=== PATIENT | female | born 1955 | race Caucasian/White ===

== ENCOUNTER → 2020-04-15 16:34 | Outpatient (BNVA) | payer MEDICARE, SELFPAY | PROVIDERS: Family Provider Family Medicine; Visit Provider Family Medicine | DX: M25.569 Pain in unspecified knee (principal) | CPT/HCPCS: 84550; 85651 ==

== ENCOUNTER → 2020-04-19 10:39 | Outpatient (BNVA) | payer OTHER, SELFPAY | PROVIDERS: Family Provider Family Medicine; Visit Provider Nurse Practitioner Family | DX: Z11.59 Encounter for screening for other viral diseases (principal) | CPT/HCPCS: 87635 ==

== ENCOUNTER → 2020-07-06 16:26 | Outpatient (BNVA) | payer MEDICARE, SELFPAY | PROVIDERS: Family Provider Family Medicine; Visit Provider Nurse Practitioner Family | DX: H10.9 Unspecified conjunctivitis (principal); R50.9 Fever, unspecified | CPT/HCPCS: 87400 ==

== ENCOUNTER → 2020-10-26 13:41 | Outpatient (BNVA) | payer MEDICARE, SELFPAY | PROVIDERS: Family Provider Family Medicine; Visit Provider Nurse Practitioner Family | DX: M25.461 Effusion, right knee (principal); M25.561 Pain in right knee; L53.9 Erythematous condition, unspecified; M79.641 Pain in right hand; M79.89 Other specified soft tissue disorders; M25.50 Pain in unspecified joint; R53.83 Other fatigue; M19.041 Primary osteoarthritis, right hand; M17.11 Unilateral primary osteoarthritis, right knee | CPT/HCPCS: 73130; 73562; 80053; 84443; 84550; 85025; 85651; 86140; 86431 ==

== ENCOUNTER → 2021-03-02 09:31 | Outpatient (BNVA) | payer MEDICARE, SELFPAY | PROVIDERS: Family Provider Family Medicine; PCP Nurse Practitioner Family; Visit Provider Nurse Practitioner Family | DX: M25.552 Pain in left hip (principal); M54.9 Dorsalgia, unspecified; M25.50 Pain in unspecified joint | CPT/HCPCS: 73502; 81000 ==

== ENCOUNTER → 2021-06-20 14:31 | Outpatient (BNVA) | payer MEDICARE, SELFPAY | PROVIDERS: Family Provider Family Medicine; PCP Nurse Practitioner Family; Visit Provider Nurse Practitioner Family | DX: Z20.822 Contact with and (suspected) exposure to COVID-19 (principal); R50.9 Fever, unspecified; R05.9 Cough, unspecified | CPT/HCPCS: 87400; 87635 ==

== ENCOUNTER → 2021-12-14 11:04 | Outpatient (BNVA) | payer MEDICARE, SELFPAY | PROVIDERS: Family Provider Family Medicine; PCP Nurse Practitioner Family; Visit Provider Nurse Practitioner Family | DX: R50.9 Fever, unspecified (principal); M25.50 Pain in unspecified joint; M17.11 Unilateral primary osteoarthritis, right knee; Z20.822 Contact with and (suspected) exposure to COVID-19 | CPT/HCPCS: 87635 ==

== ENCOUNTER 2022-03-23 21:59 | Observation (INO) | payer MEDICARE, SELFPAY ==
--- NOTE | 2022-03-23 22:01 | XRR_ITS ---
PROCEDURE INFORMATION: Exam: XR Chest Exam date and time: 03/23/2022 10:23 PM Age: 67 years old Clinical indication: Radiating; Patient HX: Chest pain with radiation to left up ext. ; Additional info: Cp TECHNIQUE: Imaging protocol: Radiologic exam of the chest. Views: 1 view. COMPARISON: No relevant prior studies available. FINDINGS: Lungs: See Heart/Mediastinum finding. Pleural spaces: Unremarkable. No pleural effusion. No pneumothorax. Heart/Mediastinum: Cardiomegaly, negative for infiltrate. Bones/joints: Unremarkable. XR/XR chest 1V portable [id number] IMPRESSION: Cardiomegaly, negative for infiltrate.
--- NOTE | 2022-03-23 22:02 | ECG_ITS ---
[facility] Test Date: 2022-03-23 Pat Name: Agustin Wilder Department: Room: Gender: Female Cardiac Care Unit Nurse: : 1955 Requested By: Mitchell Eng Order Number: [id number] Charli MD: Darren Cortez M.D. Measurements Intervals [place] Rate: 80 P: 46 AR: 172 QRS: 36 QRSD: 86 T: 64 QT: 381 QTc: 440 Interpretive Statements SINUS RHYTHM WITH OCCASIONAL VENTRICULAR PREMATURE COMPLEXES POSSIBLE RIGHT VENTRICULAR CONDUCTION DELAY [RSR (QR) IN V1/V2] No previous ECG available for comparison Electronically Signed On 03-24-2022 14:48:30 CDT by Darren Cortez M.D. [email or web address] valley [facility].Critique^It/store/OM/[id number]
[2022-03-23 22:08] VITALS: BP 154/83; PULSE 81; RESP 22; TEMP 36.6; O2SAT 97; BMI 18.3
--- NOTE | 2022-03-23 22:36 | ED_ITS ---
HPI - Chest Pain General: Chief Complaint: Chest Pain Stated Complaint: cp Time Seen by Provider: 03/23/22 22:18 Source: patient Mode of arrival: ambulatory Limitations: no limitations History of Present Illness: 67-year-old female states that she went to bed tonight she had sudden onset of crushing chest pain in the center of her chest that radiated to her left arm and neck. States pain is currently a 6 out of 10 she denies any worsening improving factors. She is a longtime smoker. Denies any cough or fever. Associated symptoms: Deny abdominal pain, dyspnea, fever(s), nausea or vomiting Review of Systems Const: Denies: fever(s), chills, body aches or change in appetite Eyes: Denies: blurry vision or eye discomfort ENMT: Denies: throat pain or dental pain Card: Reports: chest pain Resp: Denies: dyspnea GI: Denies: abdominal pain, nausea, vomiting or diarrhea : Denies: dysuria Musc: Denies: neck pain or back pain Skin/Breast: Denies: rash Neuro: Denies: headache(s) Psych: Denies: depression Andre/Lymph: Denies: easy bruising All/Imm: Denies: urticaria PFSH ED PFSH: Medical History Smoker Social History Smoking and tobacco status: current every day smoker Second hand smoke exposure: No Smoking risk assessment/counseling performed?: No Alcohol intake: never Desire information about alcohol rehabilitation?: No Counseling given: No Desire information about substance/drug rehabilitation?: No Counseling given: No Adopted: No Caregiver/support person: No Lives independently: Yes Household members: none Housing: House Marital status: / Number of children: 2 service: No Current occupational status: employed Physical Exam Const: COMMON NORMALS: no acute distress, patient oriented x3 and healthy appearing HENMT: COMMON NORMALS: normocephalic and atraumatic HEAD & SCALP: normocephalic and atraumatic Eye: COMMON NORMALS: Equal, round and reactive pupils present and EOMs intact bilaterally PUPIL: Yes Equal, round and reactive pupils present Neck/C-Spine: COMMON NORMALS: full ROM and supple Chest: COMMONS NORMALS: normal inspection of the chest and normal palpation of entire chest wall Resp: COMMON NORMALS: normal respiratory effort, No retractions, No use of accessory muscles and clear to auscultation bilaterally AUSCULTATION: clear to auscultation bilaterally Cardio: COMMON NORMALS: regular rate, regular rhythm and No murmurs present (Cardio) RATE: regular rate RHYTHM: regular rhythm GI: COMMON NORMALS: Normal to inspection, nondistended, normoactive bowel sounds present, Soft to palpation, non-tender and no masses PALPATION: Yes Soft to palpation Extremity: COMMON NORMALS: normal to inspection and full ROM Neuro: COMMON NORMALS: patient oriented x3, moves all extremities and no focal motor deficits Psych: COMMON NORMALS: mental status grossly normal, Normal thought process present and cooperative THOUGHT PROCESS: Normal thought process present Skin: COMMON NORMALS: no rashes or lesions noted and no wounds GENERAL SKIN EXAM: no rashes or lesions noted Course Vital Signs: Vital signs: Vital Signs Temperature 97.8 F 03/23/22 22:08 Pulse Rate 79 03/24/22 00:13 Respiratory Rate 18 03/24/22 01:10 Blood Pressure 145/93 03/24/22 00:13 Pulse Oximetry 94 03/24/22 00:13 Oxygen Delivery Me thod 03/23/22 22:08 MDM - Chest Pain Medical Decision Making Patient presents here with chest pain her pain has resolved here her troponin was mildly elevated and her 2-hour troponin but not a delta of 10 she is a longtime smoker has multiple risk factors will admit at this time for ACS rule out. Lab Data : 03/23/22 22:30 03/23/22 22:30 Radiology Impressions Chest X-Ray 03/23/22 22:01 IMPRESSION: Cardiomegaly, negative for infiltrate. Laboratory Results WBC 9.3 10^3/uL (4.0-10.0) 03/23/22 22:30 RBC 4.29 10^6/uL (4.1-5.3) 03/23/22 22:30 Hgb 14.0 g/dL (11.5-15.3) 03/23/22 22:30 Hct 40.8 % (37.0-47.0) 03/23/22 22:30 MCV 95.1 fl (81-99) 03/23/22 22:30 MCH 32.6 pg (28.0-34.0) 03/23/22 22:30 MCHC 34.3 g/dL (30.0-36.0) 03/23/22: RDW 13.2 % (12.1-15.1) 03/23/22 22: Plt Count 233 10^3/cmm (130-400) 03/23/22 22:30 MPV 11.3 fL (7.4-10.4) H 03/23/22 22: Neut % (Auto) 61.9 % 03/23/22: Lymph % (Auto) 27.7 % 03/23/22: [place] % (Auto) 7.4 % 03/23/22: Eos % (Auto) 2.3 % 03/23/22: Baso % (Auto) 0.5 % 03/23/22: Neut # (Auto) 5.75 10^3/uL (1.8-7.7) 03/23/22: Lymph # (Auto) 2.6 10^3/uL (0.8-4.8) 03/23/22 22:30 [place] # (Auto) 0.7 10^3/uL (0.2-0.9) 03/23/22 22:30 Eos # (Auto) 0.2 10^3/uL (0.0-0.8) 03/23/22:30 Baso # (Auto) 0.1 10^3/uL (0.0-0.1) 03/23/22: Nucleated RBC % (auto) 0 % 03/23/22: Nucleated RBCs # 0.0 /100WBC 03/23/22 22:30 Sodium 141 mmol/L (136-145) 03/23/22 22:30 Potassium 3.4 mmol/L (3.5-5.1) L 03/23/22: Chloride 106 mmol/L (98-107) 03/23/22 22: Carbon Dioxide 23 mmol/L (22-29) 03/23/22 22:30 Anion Gap 15.4 (5-19) 03/23/22 22:30 BUN 18 mg/dL (8-23) 03/23/22 22:30 Creatinine 0.6 mg/dL (0.5-0.9) 03/23/22 22:30 GFR Calculation 99.7 mL/min (90-130) 03/23/22 22:30 Glucose 134 mg/dL (65-115) H 03/23/22 22:30 Calculated Osmolality 296 mOsm/kg (285-295) H 03/23/22 22:30 Calcium 9.3 mg/dL (8.5-10.5) 03/23/22 22:30 Total Bilirubin 0.2 mg/dL (0.15-1.2) 03/23/22 22:30 AST 14 U/L (0-32) 03/23/22 22:30 ALT 9 U/L (0-33) 03/23/22 22:30 Alkaline Phosphatase 124 U/L (35-105) H 03/23/22 22:30 Troponin T Baseline 6 ng/L (0-10) 03/23/22 22:30 Troponin T 120 Minute 12.53 ng/L (0-10) H 03/24/22 00:00 Delta Troponin T 6.53 ABS# (0-10) 03/24/22 00:00 Total Protein 7.0 g/dL (6.6-8.7) 03/23/22 22:30 Albumin 4.1 g/dL (3.5-5.2) 03/23/22 22:30 Globulin 2.9 g/dL (1.3-4.6) 03/23/22 22:30 Lipase 37 U/L (13-60) 03/23/22 22:30 EKG Data EKG 1: I personally reviewed and interpreted this EKG as follows: EKG interpretation date: 03/23/22 EKG interpretation time: 22:15 Interpretation: nsr hr [address] or t wave abnormalities qrs 86 qtc 417 EKG 2: I personally reviewed and interpreted this EKG as follows: EKG interpretation date: 03/24/22 EKG interpretation time: 00:16 Interpretation: nsr hr [address] or t wave abnormalities qrs 98 qtc 434 Discharge Plan Discharge Patient Disposition: Admitted As Inpatient Clinical Impression: Chest pain Condition: Stable Coding Level of Care Code ED Rag Cutting Machine Feeder for Chg Fwd Exam Comprehensive
[2022-03-23 22:40] LABS: Basophils # 0.1 10^3/uL (0.0-0.1); Basophils % 0.5 %; Eosinophils # 0.2 10^3/uL (0.0-0.8); Eosinophils % 2.3 %; Hematocrit 40.8 % (37.0-47.0); Lymphocytes # 2.6 10^3/uL (0.8-4.8); Lymphocytes % 27.7 %; Mean Corpuscular HGB Conc 34.3 g/dL (30.0-36.0); Mean Corpuscular Hemoglobin 32.6 pg (28.0-34.0); Mean Corpuscular Volume 95.1 fl (81-99); Mean Platelet Volume 11.3 fL (7.4-10.4); Monocytes # 0.7 10^3/uL (0.2-0.9); Monocytes % 7.4 %; Neutrophils # 5.75 10^3/uL (1.8-7.7); Neutrophils % 61.9 %; Nucleated Red Blood Cells % 0 %; Platelet Count 233 10^3/cmm (130-400); Red Blood Count 4.29 10^6/uL (4.1-5.3); Red Cell Distribution Width 13.2 % (12.1-15.1); White Blood Count 9.3 10^3/uL (4.0-10.0)
[2022-03-23 22:59] LABS: Alanine Aminotransferase 9 U/L (0-33); Albumin Level 4.1 g/dL (3.5-5.2); Alkaline Phosphatase 124 U/L (35-105); Anion Gap 15.4 (5-19); Aspartate Amino Transferase 14 U/L (0-32); Blood Urea Nitrogen 18 mg/dL (8-23); Calcium 9.3 mg/dL (8.5-10.5); Carbon Dioxide 23 mmol/L (22-29); Chloride 106 mmol/L (98-107); Globulin 2.9 g/dL (1.3-4.6); Glomerular Filtration Rate 99.7 mL/min (90-130); Glucose 134 mg/dL (65-115); Lipase 37 U/L (13-60); Osmolality Calculated 296 mOsm/kg (285-295); Potassium 3.4 mmol/L (3.5-5.1); Sodium 141 mmol/L (136-145); Total Bilirubin 0.2 mg/dL (0.15-1.2); Troponin(5th) Baseline 6 ng/L (0-10)
[2022-03-23 23:50] VITALS: BP 130/87; PULSE 75; RESP 20; O2SAT 95
[2022-03-24] VITALS (9 sets, daily range): BP systolic 124–145; BP diastolic 70–93; PULSE 69–97; RESP 16–23; TEMP 36.6–36.7; O2SAT 92–98
--- NOTE | 2022-03-24 | ECG_ITS ---
[facility] Test Date: 2022-03-24 Pat Name: Agustin Wilder Department: Room: 250 Gender: Female Client Coordinator: : 1955 Requested By: Carol Webb Order Number: [id number] Charli MD: Darren Cortez M.D. Interpretive Statements NAME OF STUDY: LEXISCAN SESTAMIBI STRESS TEST INDICATION: [Chest Pain, ] Procedure: At the baseline, the blood pressure was 139/88 mmHg with a heart rate of 62 bpm. The electrocardiogram showed normal sinus rhythm, normal axis with normal ST and T's. The Lexiscan was infused over a period of 20 seconds. A total of 0.4 mg of Lexiscan was infused. The stress phase was continued for a total of 5 minutes. Heart rate was at the end of stress phase was 90 bpm and a blood pressure of 125/87 mmHg. The EKG at the peak infusion revealed normal sinus rhythm with no significant ST-T wave changes. Sestamibi was injected 20 seconds after the Lexiscan infusion. Blood pressure at the end of recovery phase was 141/79 mmHg with a heart rate of 87 bpm. Conclusion: 1. Normal EKG response to Lexiscan infusion 2. No Lexiscan induced chest pain or cardiac arrhythmia. 3. Normal blood pressure and heart rate response. 4. Sestamibi/sestamibi perfusion scan pending; see separate report. Electronically Signed On 03-25-2022 21:23:42 CDT by Darren Cortez M.D. [id number]
--- NOTE | 2022-03-24 00:16 | ECG_ITS ---
[facility] Test Date: 2022-03-24 Pat Name: Agustin Wilder Department: Room: Gender: Female Grain Miller Helper: : 1955 Requested By: Mitchell Eng Order Number: [id number] Charli MD: Darren Cortez M.D. Measurements Intervals [place] Rate: 72 P: 54 [place]: 152 QRS: 17 QRSD: 98 T: 56 QT: 410 QTc: 451 Interpretive Statements SINUS RHYTHM WITH OCCASIONAL VENTRICULAR PREMATURE COMPLEXES POSSIBLE RIGHT VENTRICULAR CONDUCTION DELAY [RSR (QR) IN V1/V2] POSSIBLE INFERIOR MYOCARDIAL INFARCTION , OF INDETERMINATE AGE [30 ms Q WAVE IN II/aVF] Compared to ECG 03/23/2022 22:15:55 Myocardial infarct finding now present Electronically Signed On 03-24-2022 14:50:22 CDT by Darren Cortez M.D. [id number]
[2022-03-24 00:23] LABS: Troponin 5 2HR 12.53 ng/L (0-10)
[2022-03-24 00:24] LABS: Troponin 5 2HR Delta 6.53 ABS# (0-10)
[2022-03-24] MEDS: ondansetron 2 mg/ML SDV 2 mL 4 MG IVP (01:07)
[2022-03-24] MEDS: HYDROmorphone 1 mg/mL INJ 1 mL 0.5 MG IVP (01:10)
--- NOTE | 2022-03-24 04:13 | ECG_ITS ---
[facility] Test Date: 2022-03-24 Pat Name: Agustin Wilder Department: Room: 250 Gender: Female Planned Giving Officer: : 1955 Requested By: Mitchell Eng Order Number: [id number] Charli MD: Darren Cortez M.D. Measurements Intervals [place] Rate: 67 P: 52 NC: 172 QRS: 40 QRSD: 89 T: 66 QT: 421 QTc: 446 Interpretive Statements SINUS RHYTHM Compared to ECG 03/24/2022 00:16:26 Ventricular premature complex(es) no longer present Myocardial infarct finding no longer present Electronically Signed On 03-24-2022 14:49:40 CDT by Darren Cortez M.D. [email or web address] on [email or web address] [email or web address].[email or web address]/store/OM/[id number]
--- NOTE | 2022-03-24 04:15 | NMCV_ITS ---
NM sarah perf SPECT r/s* [id number] Agustin Wilder Age: 67 Gender: F : 1955 Exam Date: 03/24/2022 06:57 Ordering Phys: Carol Webb MD Technologist: JIL Gary Exam Location: [facility] Indications: CHEST PAIN STRESS TEST Please [facility] IMAGE PROTOCOL Rest/Stress 1 Lexiscan Day Radiopharmaceutical Dose (mCi) Administration Site Administered by Rest: Tc-99m 10.6 IV JIL Poole Sestamibi Stress:Tc-99m 32.5 IV JIL Poole Sestamibi Rest: 24-Mar-2022 60 Discovery 630 Stress: 24-Mar-2022 30 Discovery 630 0.4mg Lexiscan. Supine position only as patient was unable to lay prone. SPECT RESULTS Technical Quality: Good Raw Data Analysis: Normal Image Corrections: No attenuation or motion correction applied Summed Stress Score: 1 Summed Rest Score: 0 Summed Difference Score: 1 PERFUSION FINDINGS There is a small in size reversible perfusion defect noted in inferolateral wall. This is consistent with small sized area of ischemia in left circumflex artery territory. FUNCTIONAL RESULTS (calculated via Gated SPECT) Stress Image LV EF (%): 76 Stress EDV (mL):85 TID: 1.04 Stress ESV (mL):20 FUNCTIONAL FINDINGS: There is normal left ventricular systolic function. IMPRESSIONS 1. Abnormal myocardial perfusion imaging with small sized area of ischemia noted in left circumflex artery territory. 2. LV systolic function is normal. Darren Cortez MD (Electronically Signed) Final Date: 24 March 2022 12:19 S
--- NOTE | 2022-03-24 04:17 | PM.HP ---
Providers/Chief Complaint Admitting Physician: Carol Webb MD Primary Care Provider: TAMIKO De Los Santos Chief Complaint: cp History of Present Illness Agustin Wilder is a 67 year old female who is a longstanding smoker, no other medical comorbidities came with chest pain. Started at 8:30 PM yesterday. Patient was walking when the pain started. She laid down to rest and the pain got better. While on her way over she started to have pain again in the car. The first time the pain radiated into her jaw. In the car pain radiated into her left arm. She has never had similar pain in the past. No past history of known cardiac issues. No hypertension diabetes. There are no acute ST-T wave changes on EKG. Troponins not significantly elevated at baseline and 2 hours. Review of Systems General: Reports: 10 or more systems reviewed and unremarkable except in HPI and below Const: Denies: fever(s), chills or body aches Eyes: Denies: change in vision, blurry vision or photophobia ENMT: Reports: hoarseness; Denies: throat pain, enlarged tonsils, odynophagia or nasal congestion Card: Denies: chest pain, palpitations, irregular heart rhythm, edema, swelling of feet/ankles, lightheadedness, pre-syncope, dyspnea on exertion or orthopnea Resp: Denies: dyspnea, productive cough, non-productive cough, wheezing, stridor, pain on inspiration, change in phlegm color, hemoptysis or chest congestion GI: Denies: abdominal pain, nausea, vomiting, hematemesis, coffee ground emesis, dysphagia, heartburn, diarrhea, constipation, GI cramping, change in stool character, hematochezia or melena : Denies: flank pain, difficulty voiding, dysuria, urinary frequency, urinary urgency, urinary hesitancy or hematuria Musc: Denies: neck pain, back pain, extremity pain, joint swelling, joint warmth or deformity Neuro: Denies: headache(s), numbness in extremities, weakness in extremities, sensory changes, difficulty walking, frequent falls, dizziness, vertigo, behavioral changes, Slurred speech present or seizure-like activity Psych: Denies: anxiety, depression, suicidal ideation or homicidal ideation Endo: Denies: polyuria, polydipsia, tired all the time, cold intolerance or hot flashes Andre/Lymph: Denies: easy bruising or easy bleeding Medications/Allergies Home Medications Medication Instructions Recorded Confirmed Last Taken Type ascorbate calcium (vitamin C) 500 500 mg PO DAILY 04/15/20 12/14/21 Unknown History mg tablet calcium carbonate 500 mg calcium 500 mg PO DAILY 04/15/20 12/14/21 Unknown History (1,250 mg) tablet vitamin E 200 unit capsule 200 unit PO DAILY 04/15/20 12/14/21 Unknown History celecoxib 200 mg capsule 200 mg PO BID 30 days #60 caps 12/14/21 12/14/21 Unknown Rx Allergies Allergy/AdvReac Type Severity Reaction Status Date / Time codeine Allergy stomach Verified 12/14/21 11:03 upset PFSH Acute PFSH: Medical History Smoker Social History Smoking and tobacco status: current every day smoker Second hand smoke exposure: No Smoking risk assessment/counseling performed?: No Alcohol intake: never Desire information about alcohol rehabilitation?: No Counseling given: No Desire information about substance/drug rehabilitation?: No Counseling given: No Adopted: No Caregiver/support person: No Lives independently: Yes Household members: none Housing: House Marital status: / Number of children: 2 service: No Current occupational status: employed Vitals/I&O/Wt Last Vital Signs Temp 97.9 F 03/24/22 03:04 Pulse 69 03/24/22 03:04 Resp 17 03/24/22 03:04 BP 124/77 03/24/22 03:04 Pulse Ox 92 03/24/22 03:04 O2 Del Method 03/24/22 03:04 Weight last 48 hrs Weight 51.71 kg Physical Exam Narrative: General: No acute distress, AO x3 HEENT: PERRLA, pupils bilaterally equal and reactive, pallors not present Chest: Normal vesicular breath sounds, no added sounds, equal good air entry bilaterally CVS: S1-S2 regular, no murmurs, no tachycardia, no gallops, no rubs Abdomen: Soft, nontender, no organomegaly, bowel sounds present Neuro: No focal deficits, no facial deformity, AO x3, power 5/5 in all limbs Data : 03/23/22 22:30 03/23/22 22:30 Other Labs: Radiology Impressions Chest X-Ray 03/23/22 22: IMPRESSION: Cardiomegaly, negative for infiltrate. Laboratory Results WBC 9.3 10^3/uL (4.0-10.0) 03/23/22: RBC 4.29 10^6/uL (4.1-5.3) 03/23/22: Hgb 14.0 g/dL (11.5-15.3) 03/23/22: Hct 40.8 % (37.0-47.0) 03/23/22: MCV 95.1 fl (81-99) 03/23/22: MCH 32.6 pg (28.0-34.0) 03/23/22: MCHC 34.3 g/dL (30.0-36.0) 03/23/22: RDW 13.2 % (12.1-15.1) 03/23/22: Plt Count 233 10^3/cmm (130-400) 03/23/22: MPV 11.3 fL (7.4-10.4) H 03/23/22: Neut % (Auto) 61.9 % 03/23/22: Lymph % (Auto) 27.7 % 03/23/22: [place] % (Auto) 7.4 % 03/23/22: Eos % (Auto) 2.3 % 03/23/22: Baso % (Auto) 0.5 % 03/23/22: Neut # (Auto) 5.75 10^3/uL (1.8-7.7) 03/23/22: Lymph # (Auto) 2.6 10^3/uL (0.8-4.8) 03/23/22: [place] # (Auto) 0.7 10^3/uL (0.2-0.9) 03/23/22: Eos # (Auto) 0.2 10^3/uL (0.0-0.8) 03/23/22: Baso # (Auto) 0.1 10^3/uL (0.0-0.1) 03/23/22: Nucleated RBC % (auto) 0 % 03/23/22 22:30 Nucleated RBCs # 0.0 /100WBC 03/23/22 22:30 Sodium 141 mmol/L (136-145) 03/23/22 22:30 Potassium 3.4 mmol/L (3.5-5.1) L 03/23/22 22:30 Chloride 106 mmol/L (98-107) 03/23/22 22:30 Carbon Dioxide 23 mmol/L (22-29) 03/23/22 22:30 Anion Gap 15.4 (5-19) 03/23/22 22:30 BUN 18 mg/dL (8-23) 03/23/22:30 Creatinine 0.6 mg/dL (0.5-0.9) 03/23/22: GFR Calculation 99.7 mL/min (90-130) 03/23/22 22:30 Glucose 134 mg/dL (65-115) H 03/23/22 22:30 Calculated Osmolality 296 mOsm/kg (285-295) H 03/23/22:30 Calcium 9.3 mg/dL (8.5-10.5) 03/23/22 22:30 Total Bilirubin 0.2 mg/dL (0.15-1.2) 03/23/22 22:30 AST 14 U/L (0-32) 03/23/22:30 ALT 9 U/L (0-33) 03/23/22 22:30 Alkaline Phosphatase 124 U/L (35-105) H 03/23/22 22:30 Troponin T Baseline 6 ng/L (0-10) 03/23/22 22:30 Troponin T 120 Minute 12.53 ng/L (0-10) H 03/24/22 00:00 Delta Troponin T 6.53 ABS# (0-10) 03/24/22 00:00 Troponin T Hi Sens 6Hr 6.00 ng/L (0-10) 03/24/22 05:03 Total Protein 7.0 g/dL (6.6-8.7) 03/23/22 22:30 Albumin 4.1 g/dL (3.5-5.2) 03/23/22 22:30 Globulin 2.9 g/dL (1.3-4.6) 03/23/22 22:30 Lipase 37 U/L (13-60) 03/23/22 22:30 A&P Assessment and plan (1) Chest pain: Chest pain radiating to neck and left arm. Made worse with exertion. Patient is a chronic smoker. Though lacking other comorbidities concerning for potential anginal type chest pain. Will evaluate with a stress test this morning. Aspirin 81 mg p.o. daily started in the interim. Low suspicion for PE, no dyspnea or hypoxia. Attestations Medical Necessity Statement*: anticipate less than 2 midnight admission for evaluation of chest pain Coding Level of Care Code Acute Group Worker for [facility] Arely Diagnoses Chest pain R07.9
[2022-03-24] MEDS: potassium chloride ER 20 mEq Tablet 40 MEQ PO (04:55)
[2022-03-24 05:47] LABS: Troponin 5 6HR Delta 0 ng/L (0-12)
--- NOTE | 2022-03-24 07:18 | PC.NURSE ---
Pt gone for stress test when bedside report was done.
[2022-03-24] MEDS: regadenoson 0.4 Mg/5 ml Syringe IVP (07:33)
--- NOTE | 2022-03-24 07:39 | USCV_ITS ---
Agustin Wilder Age: 67 Gender: F : 1955 Exam Date: 03/24/2022 08:40 Ordering Phys: Claire Sena MD Technologist: YOLANDE [place] [facility] [place]: UA BP: 143 / 85 HR: 63 Rhythm: Sinus Technical Quality: Adequate MEASUREMENTS (Male / Female) Normal Values 2D ECHO LVOT Diameter 2.0 cm LV Ejection Fraction MOD 2C 67.1 % LV Ejection Fraction 2C AL 68.6 % LA Diameter 2.8 cm LA Width 3.5 cm LA Height 4.0 cm RA Width 4.1 cm RA Height 4.4 cm Aorta at Sinotubular Diameter 1.9 cm IVC Diameter 1.7 cm M-MODE Aortic Annulus Diameter 3.0 cm LA Ao Ratio MM 0.8 MV E Point Septal Separation 0.3 cm DOPPLER AV Peak Velocity 136.0 cm/s LVOT Peak Velocity 94.0 cm/s AV Area Cont Eq vti 2.3 cm squared AV Area Cont Eq pk 2.2 cm squared MV Peak Velocity 94.0 cm/s MV Area PHT 3.9 cm squared Mitral E to A Ratio 1.7 MV E' Velocity 50.0 cm/s Mitral E to MV E' Ratio 8.1 Mitral E to LV E' Lateral Ratio 8.0 Mitral E to LV E' Septal Ratio 8.3 TR Peak Velocity 252.5 cm/s TR Peak Gradient 25.5 mmHg TR Mean Velocity 194.3 cm/s TR Mean Gradient 16.1 mmHg TR Velocity Time Integral 79.0 cm TV Peak E Velocity 52.0 cm/s Right Atrial Pressure 3.0 mmHg Pulmonary Artery Systolic Pressu 28.5 mmHg PV Peak Velocity 85.0 cm/s RV Acceleration Time 0.2 s RV Ejection Time 0.3 s RV AcT/ET 0.4 FINDINGS Left Ventricle Normal left ventricular size and systolic function, EF 66 %. Mild left ventricular hypertrophy. No regional wall motion abnormalities. Right Ventricle Normal right ventricular size and systolic function. Right Atrium Upper limit of normal size Left Atrium Mildly increased left atrial size. Mitral Valve Mild-moderate mitral valve regurgitation. Aortic Valve Mild aortic valve regurgitation. Thickened aortic valve. Tricuspid Valve Mild to moderate tricuspid valve regurgitation. Pulmonic Valve No gross abnormalities noted Pericardium No pericardial effusion. Aorta Normal aortic annulus size. IVC Normal inferior vena cava. CONCLUSIONS Normal left ventricular size and systolic function, EF 66 %. Mild left ventricular hypertrophy. No regional wall motion abnormalities. Mildly increased left atrial size. Mild to moderate mitral and tricuspid regurgitation Mild aortic valve regurgitation. Thickened aortic valve. Estimated pulmonary artery peak systolic pressure 29 mmHg There is no pericardial effusion. There are no intracardiac masses. No similar previous studies are available for comparison Dr Daxa Pierre MD [facility] (Electronically Signed) Final Date: 24 March 2022 09:48 S
[2022-03-24] MEDS: pantoprazole DR 40 mg Tablet PO (09:29)
[2022-03-24] MEDS: aspirin 81 mg EC Tablet PO (09:29)
--- NOTE | 2022-03-24 10:14 | P.DS_ITS ---
Discharge Providers Date of Admission: 03/24/22 01:13 Date of Discharge: March 24, 2022 Attending Provider at Admission: Carol Webb MD Attending Provider at Discharge: Claire Sena MD Primary Care Provider: TAMIKO De Los Santos Diagnoses at Discharge Discharge Diagnosis (1) Chest pain: Status: Acute Reason for Visit Reason for Visit: cp Hospital Course Hospital Course 67-year-old male with history of rheumatoid arthritis presented to the hospital with chief complaint of substernal pain which she describing as hard pain she would not call it squeezing or squeezing pain it was radiating towards her left arm, at the time of my evaluation she was chest pain-free, echo was unremarkable, she remained hemodynamically stable, stress test positive for reversible ischemia, Dr. Pierre was consulted, who recommended medical management because of small area of reversible ischemia patient was given option to stay overnight for diagnostic angiogram tomorrow or go home and follow-up outpatient. She has opted for outpatient evaluation with Dr. Pierre, Dr. Pierre has recommended antianginal medications we will add metoprolol 12.5 mg twice daily regimen. Would recommend Protonix 20 twice daily, I would also recommend discontinuing celecoxib if possible Considering rheumatoid arthritis I would prescribe aspirin instead of celecoxib because these inflammatory diseases speed of atherosclerotic process of vascular endothelium. Physical Exam Narrative: Awake and alert Nonfocal neuro exam Currently on room air Abdomen soft Rheumatoid arthritis joint deformity noted EOMI, PERRLA Pleasant and cooperative Discharge Data Studies Completed and Pending Completed Studies During Hospitalization Category Date Time Status Cardiac Stress Test MIBI [Sestamibi Stress Test Request Exams 03/24/22 04:12 Draft ] Routine XR chest 1V portable [id number] Stat Exams 03/23/22 22:01 Completed CV. echo complete* [id number] Routine Ultrasound 03/24/22 07:39 Completed Pending at discharge Category Date Time Status Cardiac Stress Test MIBI [Sestamibi Stress Test Request Exams 03/24/22 06:23 Ordered ] Routine NM sarah perf SPECT r/s* [id number] Routine Nuc Med 03/24/22 04:15 Taken Radiology Impressions Chest X-Ray 03/23/22 22:01 IMPRESSION: Cardiomegaly, negative for infiltrate. Laboratory Results WBC 9.3 10^3/uL (4.0-10.0) 03/23/22 22:30 RBC 4.29 10^6/uL (4.1-5.3) 03/23/22 22: Hgb 14.0 g/dL (11.5-15.3) 03/23/22: Hct 40.8 % (37.0-47.0) 03/23/22: MCV 95.1 fl (81-99) 03/23/22: MCH 32.6 pg (28.0-34.0) 03/23/22: MCHC 34.3 g/dL (30.0-36.0) 03/23/22: RDW 13.2 % (12.1-15.1) 03/23/22: Plt Count 233 10^3/cmm (130-400) 03/23/22: MPV 11.3 fL (7.4-10.4) H 03/23/22: Neut % (Auto) 61.9 % 03/23/22: Lymph % (Auto) 27.7 % 03/23/22: Preston % (Auto) 7.4 % 03/23/22: Eos % (Auto) 2.3 % 03/23/22: Baso % (Auto) 0.5 % 03/23/22: Neut # (Auto) 5.75 10^3/uL (1.8-7.7) 03/23/22: Lymph # (Auto) 2.6 10^3/uL (0.8-4.8) 03/23/22: Preston # (Auto) 0.7 10^3/uL (0.2-0.9) 03/23/22: Eos # (Auto) 0.2 10^3/uL (0.0-0.8) 03/23/22: Baso # (Auto) 0.1 10^3/uL (0.0-0.1) 03/23/22: Nucleated RBC % (auto) 0 % 03/23/22: Nucleated RBCs # 0.0 /100WBC 03/23/22: Sodium 141 mmol/L (136-145) 03/23/22: Potassium 3.4 mmol/L (3.5-5.1) L 03/23/22 22:30 Chloride 106 mmol/L (98-107) 03/23/22 22:30 Carbon Dioxide 23 mmol/L (22-29) 03/23/22 22:30 Anion Gap 15.4 (5-19) 03/23/22 22:30 BUN 18 mg/dL (8-23) 03/23/22 22:30 Creatinine 0.6 mg/dL (0.5-0.9) 03/23/22 22:30 GFR Calculation 99.7 mL/min (90-130) 03/23/22 22:30 Glucose 134 mg/dL (65-115) H 03/23/22 22:30 Calculated Osmolality 296 mOsm/kg (285-295) H 03/23/22 22:30 Calcium 9.3 mg/dL (8.5-10.5) 03/23/22 22:30 Total Bilirubin 0.2 mg/dL (0.15-1.2) 03/23/22 22:30 AST 14 U/L (0-32) 03/23/22 22:30 ALT 9 U/L (0-33) 03/23/22 22:30 Alkaline Phosphatase 124 U/L (35-105) H 03/23/22 22:30 Troponin T Baseline 6 ng/L (0-10) 03/23/22 22:30 Troponin T 120 Minute 12.53 ng/L (0-10) H 03/24/22 00:00 Delta Troponin T 6.53 ABS# (0-10) 03/24/22 00:00 Troponin T Hi Sens 6Hr 6.00 ng/L (0-10) 03/24/22 05:03 Troponin T Hi Sens 6Hr Delta 0 ng/L (0-12) 03/24/22 05:03 Total Protein 7.0 g/dL (6.6-8.7) 03/23/22 22:30 Albumin 4.1 g/dL (3.5-5.2) 03/23/22 22:30 Globulin 2.9 g/dL (1.3-4.6) 03/23/22 22:30 Lipase 37 U/L (13-60) 03/23/22 22:30 Vitals Last Vital Signs Temp 98.0 F 10/07/22 04:13 Pulse 95 03/24/22 08:19 Resp 16 03/24/22 04:13 BP 125/87 03/24/22 08:19 Pulse Ox 95 03/24/22 04:13 O2 Del Method 03/24/22 04:13 Discharge Plan Discharge Patient Disposition: Home Condition: Stable Prescriptions: New aspirin 81 mg tablet,delayed release (DR/EC) 81 mg PO DAILY Qty: 30 3RF sucralfate 1 gram tablet 1 g PO BID Qty: 20 0RF metoprolol tartrate 25 mg tablet 12.5 mg PO BID Qty: 60 1RF omeprazole 20 mg tablet,delayed release (DR/EC) 20 mg PO BID 10 Days Qty: 20 1RF Continued ascorbate calcium (vitamin C) 500 mg tablet 500 mg PO DAILY calcium carbonate 500 mg calcium (1,250 mg) tablet 500 mg PO DAILY vitamin E acetate 134 mg (200 unit) Capsule 134 mg PO DAILY Discontinued celecoxib 200 mg capsule 200 mg PO BID 30 Days Qty: 60 5RF Discharge Orders: Discharge Order (Routine); Ordered 03/24/22 Ordered By: Claire Sena Referrals: Daxa Pierre MD [Physician] - 2 weeks Radha Cuellar FNP-C [Primary Care Provider] - Discharge Diet: Cardiac Discharge Activity: Increase activity as tolerated Patient Instructions: Opioid Safety Discharge Attestations Time Spent in Discharge Care*: less than 30 min Quality Metrics Clinical Quality Measures [ No reported AMI, CVA or VTE this stay] Coding Level of Care Code Acute Chg FW DC note Diagnoses Chest pain R07.9
--- NOTE | 2022-03-24 12:24 | PM.PN ---
Subjective Subjective: Patient had a positive stress test Chest pain-free Vitals/I&O/Wt Last Vital Signs Temp 98.0 F 03/24/22 11:29 Pulse 97 03/24/22 11:29 Resp 16 03/24/22 11:29 BP 132/71 03/24/22 11:29 Pulse Ox 96 03/24/22 11:29 O2 Del Method 03/24/22 11:29 Weight last 48 hrs Weight 51.71 kg Physical Exam Narrative: Awake and alert Nonfocal neuro exam Currently on room air Abdomen soft Rheumatoid arthritis joint deformity noted EOMI, PERRLA Pleasant and cooperative Data : 03/23/22 22:30 03/23/22 22:30 A&P Assessment and plan (1) Chest pain: (2) Unstable angina: Plan Unstable angina Chest pain improved Stress test positive Will consult cardiology, Dr. Pierre is on-call today She is afebrile Hemodynamically stable Started on aspirin, atorvastatin, therapeutic Lovenox We will keep her n.p.o. for tomorrow Currently chest pain-free Attestations Medical Necessity Statement*: 40 Coding Level of Care Code Acute Client Service Executive for Pamela Mcgee Diagnoses Chest pain R07.9 Unstable angina I20.0
[2022-03-24] MEDS: enoxaparin 60 mg/0.6 mL Syringe 50 MG SUBCUT (12:47)
--- NOTE | 2022-03-24 12:56 | PC.CHAP ---
Pastoral Care Encounter/Spiritual Assessment Type of Contact [] Declined dev ops engineer visit [] Patient/Family/Request visit [] Outpatient visit [] Follow-up visit [] Physician referral [] Code/Alert [x] Routine visit [] Staff referral [] Actively dying [] Patient sleeping [] Family support [] [] Out of room [] Palliative care [] [x] Receiving care in room [] Pre-surgical visit [] Trauma [] Long length of stay [] ICU visit [] Other: Relational/Emotional Strength [] Patient feels connected with others/family/visitors/staff [] Distress [] Loneliness/isolation [] Abandonment Spirituality of Patient [] Person of Massiel [] Attends Rastafari of their Massiel [] Believes in Prayer [] Reads Bible or Congregation materials [] There are Spiritual issues to be addressed Filler In Interventions [] Prayer [] Active listening [] Non-anxious presence [] Spiritual/emotional support [] Crisis/trauma care [] Spiritual counseling [] Bereavement support [] Provided bereavement packet [] Provided Bible/devotional materials [] Provided toy/stuffed animal, coloring book to patient or family member [] Provided Communion [] Anointing/[place] [] Salvation [] Completed spiritual assessment [] Other: Impact on Illness or Injury [] Angry [] Fearful [] Anxious [] Often cries [] Exhaustion [] Unable to work [] Unable to attend christianity [] Unable to walk/stand [] Unable to read [] Unable to drive [] Unable to eat/drink [] Unable to sleep [] Unable to be with family [] Patient intubated [] Other: Summary Time spent with patient
--- NOTE | 2022-03-24 13:44 | PM.CONSULT ---
Providers/Reason For Consult Consulting Physician/Specialty*: MARCO Pierre MD/cardiology Reason for Consult*: Patient with chest pain and abnormal Myocardial perfusion imaging Requesting Physician: Dr. Sena Attending Physician: Claire Sena MD Primary Care Provider: TAMIKO De Los Santos History of Present Illness History of Present Illness Agustin Wilder is a 67 year old female with a history of rheumatoid arthritis and a longstanding history of smoking abuse, is admitted to the hospital with complaints of a prolonged episode of chest pain. She had a Myocardial perfusion imaging today which revealed a small area of reversible defect in the inferolateral region. Cardiology consult is requested for further cardiac evaluation recommendations. This patient apparently started having chest pain around 830 yesterday evening. The pain started soon after she hit the bed last night. According to her, it was a severe pain radiating to the neck on both sides. She did not have any nausea or vomiting, palpitation or dizziness. Might have had some shortness of breath. No other associated symptoms. Because of the severe pain, she was brought to the hospital by her son. On the way to the hospital, the pain was radiated to the left arm as well. She mostly felt tingly in the left arm. No other associated symptoms or radiation of pain. The pain started easing off after an hour or so. However she had lingering pain up until around midnight. At the time of my examination, patient is pain-free. However she feels like something is still not right in her lower substernal region. She had echocardiogram done today which revealed normal LV size and ejection fraction with no significant wall motion abnormalities. The Myocardial perfusion imaging revealed a small area(1% of the total myocardium) showing some reversibility. Her EKG was unremarkable. Cardiac enzymes are negative for myocardial injury. She has no previous history for myocardial infarction or congestive heart failure. She smokes 1 pack a day for the last more than 15 years. Her father had a myocardial infarction in his 50s. Her sister in her sleep with myocardial infarction. She also was in her 50s. Her brother had aortic aneurysm. Review of Systems Narrative: CONSTITUTIONAL: No fever or chills. EYES: No blurring of vision or other visual disturbances lately. ENT: No hoarseness of voice, auditory disturbances or sore throat. CARDIOVASCULAR: As mentioned above. RESPIRATORY: No significant cough. GASTROINTESTINAL: No hematemesis or melena. GENITOURINARY: No dysuria or hematuria. INTEGUMENTARY: No skin rashes or history of skin cancer. NEURO: No transient ischemic attacks or amaurosis. PSYCHIATRIC: No history of psychosis or major depression. HEMATOLOGIC: No bleeding disorders or significant anemia. ENDOCRINE: No history of polyuria or polydipsia. MUSCULOSKELETAL: No recent joint pain or swelling. ALLERGY/IMMUNOLOGY: As mentioned above. Medications/Allergies Home Medications Medication Instructions Recorded Confirmed Last Taken Type ascorbate calcium (vitamin C) 500 500 mg PO DAILY 04/15/20 03/24/22 Unknown History mg tablet calcium carbonate 500 mg calcium 500 mg PO DAILY 04/15/20 03/24/22 Unknown History (1,250 mg) tablet celecoxib 200 mg capsule 200 mg PO BID 30 days #60 caps 12/14/21 03/24/22 Unknown Rx vitamin E acetate 134 mg (200 134 mg PO DAILY 03/24/22 03/24/22 Unknown History unit) capsule Allergies Allergy/AdvReac Type Severity Reaction Status Date / Time codeine Allergy stomach Verified 03/24/22 07:37 upset Current Medications Generic Name Dose Route Start Last Admin Trade Name Freq PRN Reason Stop Dose Admin Aspirin 81 mg 03/24/22 09:00 03/24/22 09:29 Aspirin 81 Mg Ec Tablet PO 81 mg DAILY LUAN Administration Enoxaparin Sodium 50 mg 03/24/22 12:30 03/24/22 12:47 Enoxaparin 60 Mg/0.6 Ml Syringe SUBCUT 50 mg Q12H LUAN Administration Pantoprazole Sodium 40 mg 03/24/22 09:00 03/24/22 09:[address] 40 Mg Tablet PO 40 mg DAILY LUAN Administration PFSH Acute PFSH: Medical History Smoker Social History Smoking and tobacco status: current every day smoker Second hand smoke exposure: No Smoking risk assessment/counseling performed?: No Alcohol intake: never Desire information about alcohol rehabilitation?: No Counseling given: No Desire information about substance/drug rehabilitation?: No Counseling given: No Adopted: No Caregiver/support person: No Lives independently: Yes Household members: none Housing: House Marital status: / Number of children: 2 service: No Current occupational status: employed Vitals/I&O/Wt Last Vital Signs Temp 98.0 F 03/24/22 11:29 Pulse 97 03/24/22 11:29 Resp 16 03/24/22 11:29 BP 132/71 03/24/22 11:29 Pulse Ox 96 03/24/22 11:29 O2 Del Method 03/24/22 11:29 Weight last 48 hrs Weight 114 lb Physical Exam Narrative: GENERAL: The patient is alert and oriented times three. Not in any acute distress. HEENT: No significant pallor, icterus or lymphadenopathy.Oral cavity: There are no mucous membrane lesions. NECK: Trachea appears to be central. No masses noted. No JVD or thyromegaly appreciated. RESPIRATORY: Chest is symmetrical. No intercostals muscle retraction or any accessory muscle activation. There is no chest wall tenderness. Breath sounds are heard bilaterally. No rales or rhonchi heard. No evidence of any consolidation. BREASTS: Deferred. HEART: The heart sounds are normal. No S3 or S4. No significant murmurs. No pericardial rub ABDOMEN: No vessel pulsations or distention. No tenderness. No organomegaly appreciated. Bowel sounds are normally heard. : Deferred. RECTAL: Deferred. LYMPHATIC: No lymphadenopathy noted in the neck. EXTREMITIES: No edema or cyanosis. No clubbing. MUSCULOSKELETAL: No acute joint deformities or swelling SKIN: There are no significant rashes or ecchymosis NEUROPSYCHIATRIC: The patient is alert and oriented x3. Appears to be in a good mood. No tremors or rigidity noted. Data : 03/23/22 22:30 03/23/22 22:30 Other Labs: Laboratory Last Values WBC 9.3 10^3/uL (4.0-10.0) 03/23/22 22:30 RBC 4.29 10^6/uL (4.1-5.3) 03/23/22 22:30 Hgb 14.0 g/dL (11.5-15.3) 03/23/22 22:30 Hct 40.8 % (37.0-47.0) 03/23/22 22:30 MCV 95.1 fl (81-99) 03/23/22 22:30 MCH 32.6 pg (28.0-34.0) 03/23/22 22: MCHC 34.3 g/dL (30.0-36.0) 03/23/22 22:30 RDW 13.2 % (12.1-15.1) 03/23/22:30 Plt Count 233 10^3/cmm (130-400) 03/23/22 22: MPV 11.3 fL (7.4-10.4) H 03/23/22:30 Neut % (Auto) 61.9 % 03/23/22: Lymph % (Auto) 27.7 % 03/23/22: Allen % (Auto) 7.4 % 03/23/22: Eos % (Auto) 2.3 % 03/23/22: Baso % (Auto) 0.5 % 03/23/22: Neut # (Auto) 5.75 10^3/uL (1.8-7.7) 03/23/22: Lymph # (Auto) 2.6 10^3/uL (0.8-4.8) 03/23/22: Allen # (Auto) 0.7 10^3/uL (0.2-0.9) 03/23/22 22: Eos # (Auto) 0.2 10^3/uL (0.0-0.8) 03/23/22: Baso # (Auto) 0.1 10^3/uL (0.0-0.1) 03/23/22: Nucleated RBC % (auto) 0 % 03/23/22: Nucleated RBCs # 0.0 /100WBC 03/23/22 22: Sodium 141 mmol/L (136-145) 03/23/22 22: Potassium 3.4 mmol/L (3.5-5.1) L 03/23/22:30 Chloride 106 mmol/L (98-107) 03/23/22 22:30 Carbon Dioxide 23 mmol/L (22-29) 03/23/22 22:30 Anion Gap 15.4 (5-19) 03/23/22 22:30 BUN 18 mg/dL (8-23) 03/23/22 22:30 Creatinine 0.6 mg/dL (0.5-0.9) 03/23/22 22:30 GFR Calculation 99.7 mL/min (90-130) 03/23/22 22:30 Glucose 134 mg/dL (65-115) H 03/23/22 22:30 Calculated Osmolality 296 mOsm/kg (285-295) H 03/23/22:30 Calcium 9.3 mg/dL (8.5-10.5) 03/23/22 22:30 Total Bilirubin 0.2 mg/dL (0.15-1.2) 03/23/22:30 AST 14 U/L (0-32) 03/23/22: ALT 9 U/L (0-33) 03/23/22:30 Alkaline Phosphatase 124 U/L (35-105) H 03/23/22:30 Troponin T Baseline 6 ng/L (0-10) 03/23/22: Troponin T 120 Minute 12.53 ng/L (0-10) H 03/24/22 00:00 Delta Troponin T 6.53 ABS# (0-10) 03/24/22 00:00 Troponin T Hi Sens 6Hr 6.00 ng/L (0-10) 03/24/22 05:03 Troponin T Hi Sens 6Hr Delta 0 ng/L (0-12) 03/24/22 05:03 Total Protein 7.0 g/dL (6.6-8.7) 03/23/22 22:30 Albumin 4.1 g/dL (3.5-5.2) 03/23/22 22:30 Globulin 2.9 g/dL (1.3-4.6) 03/23/22 22: Lipase 37 U/L (13-60) 03/23/22 22:30 A&P Assessment and plan (1) Chest pain: Patient's prolonged episode of chest pain may suggest an unstable angina. However her EKG is unremarkable. There is no evidence of myocardial jewelry, based on the blood test. The echocardiogram is unremarkable. The small area of ischemia and the perfusion scan is suggestive of ischemia in the distribution of the left circumflex artery. The reliability of this finding is questionable especially since it involves only 1% of the total myocardium, based on the nuclear scan. The limitations of the stress testing were discussed with the patient and her family in detail. The option of optimizing medical treatment versus going ahead with an angiogram were discussed. If she remained stable, it would be reasonable to try medical treatment for a while. The patient and the family are still discussing and will let us know once they make a final decision. (2) Family history of premature coronary artery disease: This is of concern. The implications are discussed with the patient. (3) Smoking addiction: Patient is strongly advised to quit smoking. Cardiovascular implications were discussed. (4) Rheumatoid arthritis: May continue on the current treatment. (5) Elevated blood pressure reading: Patient's systolic blood pressure is in the 130s and 140s at times. I may go ahead and started on a low-dose of beta-amanda namely metoprolol 25 mg p.o. twice daily. Plan Also reviewed it with the baby aspirin and sublingual nitroglycerin on a as needed basis. The lipid profile needs to be checked on the blood in the lab. If it is abnormal, it may be appropriate to start her on a statin. Thank for the opportunity to eval this patient and make these recommendations. Coding Level of Care Code Acute Hazardous Materials Driver for Wendyg Fwd History Expanded Problem Focused Exam Expanded Problem Focused Medical Decision Making High Complexity Diagnoses Chest pain R07.9 Family history of premature coronary artery disease Z82.49 Smoking addiction F17.200 Rheumatoid arthritis M06.9 Elevated blood pressure reading R03.0
[2022-03-24 14:35] LABS: Chol HDL Ratio 3.78 mg/dL (0.0-4.40); Cholesterol 193 mg/dL (0-200); HDL Cholesterol 51 mg/dL (60-100); LDL Cholesterol Calculated 121 mg/dL (50-129); LDL HDL Ratio 2.37 RATIO (0.00-3.22); Triglycerides 107 mg/dL (0-150); VLDL Cholestrol Calculation 21 mg/dL (0-30)
--- NOTE | 2022-03-24 16:34 | PC.NURSE ---
IV removed intact. Patient tolerated well. Discharge instructions reviewed with patient and family members at bedside. Patient and family members verbalized understanding of discharge instructions including follow up appointments and medication changes. Patient wheel chaired to private car.
== END 2022-03-24 16:20 | disposition home or self-care (01) ==
LOC: ER 03-24 01:13 → MEDSURG 03-24 01:22
PROVIDERS: Internal Medicine Cardiovascular Disease; Admitting Provider Student in an Organized Health Care Education/Training Program; Emergency Provider Emergency Medicine; PCP Nurse Practitioner Family; Visit Provider Internal Medicine
DX: I20.0 Unstable angina (principal); R07.9 Chest pain, unspecified; Z82.49 Family history of ischemic heart disease and other diseases of the circulatory system; F17.200 Nicotine dependence, unspecified, uncomplicated; M06.9 Rheumatoid arthritis, unspecified; R03.0 Elevated blood-pressure reading, without diagnosis of hypertension
CPT/HCPCS: 36415; 71045; 78452; 80053; 80061; 83690; 84484; 85025; 93005; 93017; 93306; 96372; 96374; 96375; 99285; A9500; G0378; J1170; J1650; J2405; J2785